=== PATIENT | male | born 1980 | race American Indian/Alaskan Native ===

== ENCOUNTER 2017-04-18 15:06 | Emergency (ER) | payer SELFPAY ==
[2017-04-18 15:19] VITALS: BP 132/85
--- NOTE | 2017-04-18 16:38 | XRay Report ---
Left hand 3 views. History: Pain after trauma. Findings: There is a fracture of the distal aspect of the fifth metacarpal. No other fractures or significant findings are seen. Impression: Fracture of the fifth distal metacarpal.
[2017-04-18] MEDS ORDERED: MOTRIN PO ONE (17:23)
--- NOTE | 2017-04-18 17:33 | Emergency Department Report ---
ED Extremity Problem HPI - General Chief complaint: Extremity Injury, Upper Stated complaint: HAND Time Seen by Provider: 04/18/17 17:21 Source: patient Mode of arrival: Ambulatory Limitations: No Limitations - History of Present Illness Initial comments: PT states he is left handed. PT stats on Monday his L hand was shut in car door. PT reports pain and swelling since injury. PT state the swelling has decreased but his still has 10/10 pain if he moves his left hand. 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 MD Complaint: extremity pain -: Sudden, days(s) Location: left, upper extremity (hand) History of Same: No Severity scale (0 -10): 10 (with movement of L hand) Quality: sharp (hand pain with movement ), constant (swelling. ) Consistency: constant (swelling ), intermittent (10/10 pain ) Improves with: rest Worsens with: palpation, other (movement ) Associated Symptoms: denies other symptoms. denies: chest pain, fever - Related Data Previous Rx's Medication Instructions Recorded Last Taken Type Acetaminophen/Codeine [Tylenol #3] 1 tab PO Q6H PRN #12 tab 04/18/17 Unknown Rx Ibuprofen [Motrin] 600 mg PO Q8H PRN #15 tablet 04/18/17 Unknown Rx Allergies Allergy/AdvReac Type Severity Reaction Status Date / Time No Known Allergies Allergy Unverified 04/18/17 15:20 ED Review of Systems ROS: Stated complaint: HAND Other details as noted in HPI Comment: All other systems reviewed and negative Constitutional: denies: chills, fever Gastrointestinal: denies: nausea, vomiting Musculoskeletal: as per HPI, other (L hand welling ) Skin: other (pt denies any damange to the skin ) ED Past Medical Hx - Past Medical History Previous Medical History?: No - Surgical History Past Surgical History?: No - Social History Smoking Status: Never Smoker Substance Use Type: None - Medications Home Medications: Home Medications Medication Instructions Recorded Confirmed Last Taken Type Acetaminophen/Codeine [Tylenol #3] 1 tab PO Q6H PRN #12 tab 04/18/17 Unknown Rx Ibuprofen [Motrin] 600 mg PO Q8H PRN #15 tablet 04/18/17 Unknown Rx ED Physical Exam - General Limitations: No Limitations General appearance: alert, in no apparent distress - Head Head exam: Present: atraumatic, normocephalic, normal inspection - Eye Eye exam: Present: normal appearance, PERRL, EOMI. Absent: conjunctival injection - ENT ENT exam: Present: normal exam, mucous membranes moist, normal external ear exam - Neck Neck exam: Present: normal inspection, full ROM. Absent: tenderness - Respiratory Respiratory exam: Present: normal lung sounds bilaterally. Absent: respiratory distress, wheezes, rales, rhonchi - Cardiovascular Cardiovascular Exam: Present: regular rate, normal rhythm, normal heart sounds - GI/Abdominal GI/Abdominal exam: Present: soft. Absent: tenderness - Extremities Exam Extremities exam: Present: tenderness, normal capillary refill. Absent: normal inspection - Expanded Upper Extremity Exam Right General: Present: normal inspection Left General: Absent: laceration Forearm Wrist exam: Present: normal inspection, full ROM. Absent: tenderness, swelling Hand Wrist exam: Present: full ROM, tenderness, swelling (to 5th metacarpal), ecchymosis. Absent: normal inspection, deformity, dislocation, amputation, nail avulsion, subungual hematoma Vascular: Present: normal capillary refill - Back Exam Back exam: Present: normal inspection, full ROM. Absent: tenderness, CVA tenderness (R), CVA tenderness (L) - Neurological Exam Neurological exam: Present: alert, oriented X3 - Psychiatric Psychiatric exam: Present: normal affect, normal mood - Skin Skin exam: Present: warm, dry, intact, normal color, ecchymosis ED Course Vital Signs 04/18/17 15:16 Temperature 98.5 F Pulse Rate 66 Respiratory 18 Rate Blood Pressure 132/85 O2 Sat by Pulse 100 Oximetry - Reevaluation(s) Reevaluation #1: 04/18/17 17:43 PT aware of dx and need for ORTHO follow up. PT has been placed in splint by nursing staff. PT NVI. - Pulse Oximetry Interpretation Digit-Finger Initial Pulse Oximetry Readin Actions Taken: none ED Medical Decision Making - Radiology Data Radiology results: report reviewed, image reviewed L hand XR: fx 5th distal metacarpal - Differential Diagnosis fracture, contusion, crush injury Critical Care Time: No Critical care attestation.: If time is entered above; I have spent that time in minutes in the direct care of this critically ill patient, excluding procedure time. ED Disposition Clinical Impression: Hand fracture, left Qualifiers: Encounter type: initial encounter Fracture type: closed Qualified Code(s): S62.92XA - Unspecified fracture of left wrist and hand, initial encounter for closed fracture Disposition: TO HOME OR SELFCARE Is pt being admited?: No Does the pt Need Aspirin: No Condition: Stable Instructions: Hand Fracture (ED), Splint Care (ED) Additional Instructions: No driving or alcohol after taking Tylenol #3 Try treating your pain with Motrin first. RICE Follow up with ORTHO in 2-3 days Keep your splint on and dry Wear sling as needed Follow up with PCP in a week and have your BP rechecked Prescriptions: Acetaminophen/Codeine [Tylenol #3] 1 tab PO Q6H PRN #12 tab PRN Reason: Pain , Severe (7-10) Ibuprofen [Motrin] 600 mg PO Q8H PRN #15 tablet PRN Reason: Pain Referrals: [facility] [Outside] - 3-5 Days LOU PERKINS MD [Referring] - 3-5 Days VICKY HARTMAN MD [Staff Physician] - 3-5 Days Forms: Work/School Release Form(ED) Time of Disposition: 17:38
== END 2017-04-18 17:55 | disposition home or self-care (01) ==
LOC: ED 15:06
DX: S62.92XA Unspecified fracture of left hand, initial encounter for closed fracture (principal); W23.0XXA Caught, crushed, jammed, or pinched between moving objects, initial encounter; Y93.9 Activity, unspecified; Y92.89 Other specified places as the place of occurrence of the external cause; Y99.9 Unspecified external cause status